=== PATIENT | female | born 1960 | race African-American/Black ===

== ENCOUNTER 2016-10-19 23:52 | Emergency (ER) | payer MEDICAID, OTHER ==
[~2016-10-19] VITALS: Ht 167.6 cm; Wt 77.3 kg
[2016-10-20 00:05] VITALS: BP 184/120; PULSE 78; RESP 16; O2SAT 99
--- NOTE | 2016-10-20 00:18 | ED.REPORT ---
HPI-Dental/Mouth Prob Date of Service Oct 20, 2016 ED Provider: Dr. Anoop Zapata The patient is a 56 year old female who presents to the ED complaining of increasingly severe, 10/10, tooth pain for the past 2 nights. She took 2 naproxen yesterday which decreased her pain. She is missing several teeth and does not have a dentist. She indicates several different teeth that are causing her pain. Nursing Notes Stated Complaint: SEVERE TOOTHACHE Chief Complaint: Dental Nursing Notes Reviewed: Yes Allergies: Coded Allergies: No Known Allergies (Unverified , 10/20/16) Scheduled Amoxicillin (Amoxicillin) 500 Mg Tablet 500 MG PO TID General Time Seen by MD: 00:18 Chief Complaint Tooth pain Hx Obtained From: Patient Arrived By: Walk-in Onset Occurred: 2 days ago Symptom Duration: Since onset Quality: Painful Severity: Current: Pain level 10 out of 10 Pertinent Negative: Pt denies other symptoms Recent Healthcare: No recent doctor visit, No recent hospitalization Similar Sx Previous: No Past Medical History Past Medical History asthma Past Surgical History denies Smoking History Unknown if Ever Smoker Social History Other Social History: Local resident Ambulatory Status Independent Review of Systems Constitutional: Denies: Chills, Fever Ears / Nose / Throat: Reports: Mouth pain, Toothache, Denies: Throat swelling, Tongue swelling Complete sys rev & neg: except as marked. Neurologic: Denies: Change LOC, Dizziness, Headache, Lightheaded, Unable to speak, Weakness Physical Exam Initial Vital Signs Vital Signs (First) Date Time Temp Pulse Resp B/P Pulse Ox O2 Delivery O2 Flow Rate FiO2 10/20/16 00:05 37.0 78 16 184/120 99 Room Air Initial VS: Reviewed ENT: Mucous membranes moist, Pharynx NL Dental / Gums: Positive: Dental caries present, Dentition poor developing multiple dental carries dominant tooth appears to be #6 no drainable abscess no trismus Neck: Atraumatic, Supple General/Constitutional: Awake, Alert, Cooperative Head / Eyes: Atraumatic, Normocephalic, PERRL Neurologic: Oriented X3, Speech NL Upper Extremity / MS: Atraumatic, Full range of motion, No deformity Wrist / Hand: Atraumatic, Full range of motion, No deformity Lower Extremity / Pelvis / MS: Atraumatic, Full range of motion, No deformity Ankle / Foot: Atraumatic, Full range of motion, No deformity Skin: Atraumatic, Color NL, No rash Re-Eval/Medical Decision Med Decision/Clinical Course 56-year-old with multiple CARIOUS teeth and apparently an abscess around the root of #6. Again with amoxicillin, single dose Decadron, ongoing Naprosyn, and follow up with dentist ALEX. Dental list provided. Counseled Regarding: Diagnosis, Lab results, Need for follow-up, When/why to return to ED Discharge & Departure Primary Impression: Dental caries Additional Impression: Dental abscess Disposition: Home Discharge Condition All VS Reviewed: Yes Condition: Stable Patient Instructions: Dental Caries (ED), Dental Abscess (ED) Additional Instructions: Thank you for entrusting us with your care today. Use Tylenol and Ibuprofen as needed for pain. It is very important that you follow up with a dentist in the next week. I have attached several referrals. Return to the Emergency Department if you experience any new or worsening symptoms. I hope you feel better soon! Referrals: [facility] Pending [facility] To [facility] Scribe Attestation Portion of this note were transcribed by Emely Amaya. I, Dr. Zapata, personally performed the history, physical exam, and medical decision-making: I reviewed and confirmed the accuracy for the information in the transcribed note. Signed by: kait Guzman, 10/20/16 0200 copies to: [facility] Anoop Zapata MD Oct 20, 2016 00:18 Emely Amaya Oct 20, 2016 00:27
[2016-10-20] MEDS ORDERED: Dexamethasone 20 mg/2 mL Oral Solution PO ONE (00:30)
[2016-10-20] MEDS ORDERED: AMOX500T2 PO (00:31)
[2016-10-20 01:14] VITALS: BP 138/98; PULSE 71; RESP 18; O2SAT 98
== END 2016-10-20 01:27 | disposition home or self-care (01) ==
LOC: SED 23:52
DX: K02.9 Dental caries, unspecified (principal); K04.7 Periapical abscess without sinus; J45.909 Unspecified asthma, uncomplicated
CPT/HCPCS: 96372; 99283; J1885

== ENCOUNTER 2016-10-20 18:55 | Emergency (ER) | payer OTHER ==
[~2016-10-20] VITALS: Ht 167.6 cm; Wt 77.3 kg
[~2016-10-20 18:55] MED LIST: AMOX500T2 PO
[2016-10-20 18:59] VITALS: BP 171/94; PULSE 87; RESP 24; O2SAT 98
== END 2016-10-20 21:28 | disposition left against medical advice (07) ==
LOC: SED 18:55
DX: Z53.21 Procedure and treatment not carried out due to patient leaving prior to being seen by health care provider (principal)